=== PATIENT | male | born 1960 | race African-American/Black ===

== ENCOUNTER 2020-04-26 10:53 | Emergency (ER) | payer OTHER ==
[2020-04-26 11:48] LABS: Hematocrit 48.9 % (39.6-49.0); Lymphocytes % 27.5 % (15.3-44.8); MPV 9.4 fL (7.6-11.3); RBC Red Blood Cell Count 6.08 M/uL (4.33-5.43)
[2020-04-26] MEDS ORDERED: NA CHLORIDE 0.9% 1,000 ML ONE (11:50)
--- NOTE | 2020-04-26 12:11 | RAD REPORT ---
EXAM DESCRIPTION: RAD - Chest Single View - 04/26/2020 12:02 pm CLINICAL HISTORY: COUGH Chest pain. COMPARISON: No comparisons FINDINGS: Portable technique limits examination quality. The lungs are mildly underinflated but grossly clear. The heart is normal in size. No displaced fract ures. IMPRESSION: No acute intrathoracic process suspected.
[2020-04-26 12:13] LABS: ALT/SGPT 43 U/L (12-78); AST/SGOT 17 U/L (15-37); Albumin 4.1 g/dL (3.4-5.0); Alkaline Phosphatase 92 U/L (45-117); BUN Blood Urea Nitrogen 30 mg/dL (7-18); Bicarbonate 26 mmol/L (21-32); Bilirubin Direct 0.2 mg/dL (0-0.2); Bilirubin Total 1.2 mg/dL (0.2-1.0); Lipase 97 U/L (73-393); Magnesium 2.4 mg/dL (1.8-2.4); NT PRO-BNP 21 pg/mL (<125); Potassium 4.6 mmol/L (3.5-5.1); Protein, Total 8.8 g/dL (6.4-8.2); Sodium Level 136 mmol/L (136-145); Troponin (Emerg Dept Use Only) < 0.02 ng/mL (0.0-0.045)
[2020-04-26 12:26] LABS: Glucose Level 480 mg/dL (74-106)
[2020-04-26 12:27] LABS: Urine Blood NEGATIVE (NEG); Urine Glucose 3+ (NEG); Urine Protein NEGATIVE (NEG); Urine Specific Gravity 1.015 (1.005-1.030); Urine pH 6.5 (5.0-7.0)
[2020-04-26] MEDS ORDERED: INSULIN -REGULAR HUMAN 50 UNIT/0.5 ML ML ONE (13:08)
--- NOTE | 2020-04-26 13:16 | RAD REPORT ---
EXAM DESCRIPTION: CT - Stone Protocol - 04/26/2020 12:56 pm CLINICAL HISTORY: Flank pain. ABD PAIN COMPARISON: Chest Single View dated 04/26/2020 TECHNIQUE: Axial images were obtained without oral or IV contrast. Lack of contrast limits solid org an and vascular assessment. The [id number] spans the entirety of the system partially obscuring uppermost abdomen and lung bases. Coronal reformatted images were obtained and reviewed. All CT scans are performed using dose optimization technique as appropriate and may include automated exposure control or mA/KV adjustment according to patient size. FINDINGS: The lower lung sesay are clear. Imaged portions of the liver and spleen show no suspicious findings on non-contrast imaging. The panc reas and adrenal glands are normal. No pathologic lymphadenopathy in the abdomen or pelvis. No urinary tract stones or obstructive uropathy. 4 cm benign-appearing right renal cyst. No bowel obstruction, free air, free fluid or abscess. Normal appendix noted. Posterior fusion hardware present L5 on S1. IMPRESSION: No urinary tract stones or obstructive uropathy.
--- NOTE | 2020-04-26 13:23 | ER ---
Nurse's Notes [facility] Name: Christiano Chapin Age: 60 yrs Sex: Male : 1960 Arrival Date: 04/26/2020 Time: 10:56 Bed 14 Private MD: Diagnosis: Type 2 diabetes mellitus;Unspecified kidney failure-chronic insufficency Presentation: 04/26 11:10 Chief complaint: Patient states: Light headed x 2-3 days. Urinary urgency and ca1 frequency, lower abdominal pain and tenderness, decrease appetite, nausea x 2-3 days. Pain is constant, non-radiating and describes as like "someone is punching me". Denies burning with urination. Denies fever. Coronavirus screen: Client denies travel out of the [place] in the last 14 days. nausea. Coronavirus screen: Client presents with at least one sign or symptom that may indicate coronavirus-19. Standard/surgical mask placed on the client. Provider contacted for isolation considerations. Ebola Screen: Patient negative for fever greater than or equal to 101.5 degrees Fahrenheit, and additional compatible Ebola Virus Disease symptoms Patient denies exposure to infectious person. Patient denies travel to an Ebola-affected area in the 21 days before illness onset. No symptoms or risks identified at this time. Initial Sepsis Screen: Does the patient meet any 2 criteria? No. Patient's initial sepsis screen is negative. Does the patient have a suspected source of infection? No. Patient's initial sepsis screen is negative. Risk Assessment: Do you want to hurt yourself or someone else? Patient reports no desire to harm self or others. Onset of symptoms was April 26, 2020. 11:10 Method Of Arrival: Ambulatory ca1 11:10 Acuity: LATOYA 3 ca1 Triage Assessment: 11:27 General: Appears in no apparent distress. comfortable, Behavior is calm, cooperative, ca1 appropriate for age. Pain: Complains of pain in right lower quadrant and left lower quadrant Pain does not radiate. Pain currently is 8 out of 10 on a pain scale. Pain began 2-3 days ago. Is continuous. EENT: No deficits noted. No signs and/or symptoms were reported regarding the EENT system. Neuro: Level of Consciousness is awake, alert, obeys commands, Oriented to person, place, time, situation. Cardiovascular: Heart tones S1 S2 present Capillary refill < 3 seconds Patient's skin is warm and dry. Respiratory: Airway is patent Respiratory effort is even, unlabored, Respiratory pattern is regular, symmetrical, Breath sounds are clear bilaterally. GI: Abdomen is round non-distended, Bowel sounds present X 4 quads. Abd is soft X 4 quads Abdomen is tender to palpation X 4 quads. Reports nausea. : Reports urgency, urinary frequency. Derm: Skin is intact, is healthy with good turgor, Skin is pink, warm \\T\\ dry. Musculoskeletal: Circulation, motion, and sensation intact. Capillary refill < 3 seconds. Historical: - Allergies: 11: No Known Allergies; ca1 - Home Meds: : amlodipine 5 mg tab 1 tab once daily [Active]; hydrocodone-acetaminophen 7.5-325 mg ca1 Oral tab [Active]; cyclobenzaprine 10 mg Oral tab [Active]; docusate sodium 100 mg Oral cap [Active]; piroxicam 20 mg Oral cap [Active]; lisinopril 2.5 mg Oral tab [Active]; metformin 750 mg Oral Tb24 [Active]; - PMHx: 11: Diabetes - NIDDM; Hypertension; ca1 - PSHx: : None; ca1 - Immunization history:: Adult Immunizations up to date. - Social history:: Smoking status: Patient denies any tobacco usage or history of. Screenin:29 Abuse screen: Denies threats or abuse. Denies injuries from another. Nutritional ca1 screening: No deficits noted. Tuberculosis screening: No symptoms or risk factors identified. Fall Risk IV access (20 points). Ambulatory Aid- Crutches/Cane/Walker (15 pts). Total Osorio Fall Scale indicates Low Risk Score (25-44 pts). Fall prevention measures have been instituted. Side Rails Up X 2 Family Present and informed to notify staff if they need to leave bedside As available Patient and Family Educated on Fall Prevention Program and strategies. Assessment: 11:29 Reassessment: See triage notes. ca1 12:00 Reassessment: Pt in Radiologyt. ca1 13:05 Reassessment: Patient appears in no apparent distress at this time. No changes from ca1 previously documented assessment. Patient and/or family updated on plan of care and expected duration. Pain level reassessed. Patient is alert, oriented x 3, equal unlabored respirations, skin warm/dry/pink. 14:10 Reassessment: Patient appears in no apparent distress at this time. Patient and/or ca1 family updated on plan of care and expected duration. Pain level reassessed. Patient is alert, oriented x 3, equal unlabored respirations, skin warm/dry/pink. 14:10 Reassessment: BGL 371, Notified Dr. Bustamante. VO give Lantus SQ then discharge. ca1 Vital Signs: 11:10 BP 160 / 103; Pulse 104; Resp 18; Temp 98.7(O); Pulse Ox 99% on R/A; Weight 113.4 kg ca1 (R); Height 6 ft. 0 in. (182.88 cm) (R); 11:47 BP 157 / 96; Pulse 108; Resp 20 S; Pulse Ox 98% on R/A; ca1 13:09 BP 148 / 96; Pulse 99; Resp 15 S; Pulse Ox 95% on R/A; ca1 13:35 BP 136 / 99 RA Supine (auto/lg); Pulse 101; em1 13:38 BP 137 / 94 LA Sitting (auto/lg); Pulse 108; em1 13:40 BP 142 / 87 LA Standing (auto/lg); Pulse 117; em1 14:10 BP 144 / 95; Pulse 99; Resp 18 S; Pulse Ox 97% on R/A; ca1 11:10 Body Mass Index 33.91 (113.40 kg, 182.88 cm) ca1 ED Course: 10:56 Patient arrived in ED. ag5 11:19 Norma Clay, ALINA is Primary Nurse. ca1 11:20 Lopez Bustamante MD is Attending Physician. yeny 11:24 Triage completed. ca1 11:27 Arm band placed on right wrist. ca1 11:29 Patient has correct armband on for positive identification. Placed in gown. Bed in low ca1 position. Call light in reach. Side rails up X2. Pulse ox on. NIBP on. Warm blanket given. 11:39 Initial lab(s) drawn, by me, sent to lab. Inserted saline lock: 20 gauge in right ca1 antecubital area, using aseptic technique. Blood collected. 11:39 No provider procedures requiring assistance completed. ca1 12:01 XRAY Chest (1 view) In Process Unspecified. EDMS 12:02 Urine collected: clean catch specimen, clear, Amount Voided: 200mL. ca1 12:03 Bladder scan completed. [address] Bustamante. ca1 12:56 CT Stone Protocol In Process Unspecified. EDMS 13:24 Eun Cevallos MD is Referral Physician. yeny 14:30 IV discontinued, intact, bleeding controlled, No redness/swelling at site. Pressure ca1 dressing applied. Administered Medications: 11:40 Drug: NS 0.9% 1000 ml Route: IV; Rate: 125 ml/hr; Site: right antecubital; ca1 13:10 Follow up: Response: No adverse reaction; IV Status: Order to discontinue infusion; IV ca1 Intake: 125ml 13:09 Drug: Insulin Regular Human 10 units {Co-Signature: aa5 (Salina Holder RN).} Route: ca1 IVP; Site: right forearm; 14:18 Follow up: Response: No adverse reaction; Blood sugar is lowered ca1 13:11 Drug: NS 0.9% 1000 ml Route: IV; Rate: 1 bolus; Site: right antecubital; ca1 14:20 Follow up: Response: No adverse reaction; IV Status: Completed infusion; IV Intake: ca1 1000ml 14:20 Drug: LanTUS 40 units Route: Sub-Q; Site: right lower abdomen; ca1 14:20 Follow up: Response: No adverse reaction; Medication administered at discharge. ca1 Intake: 13:10 IV: 125ml; Total: 125ml. ca1 14:20 IV: 1000ml; Total: 1125ml. ca1 Outcome: 13:22 Discharge ordered by . yeny 14:30 Discharged to home via wheelchair, with family. ca1 14:30 Condition: stable 14:30 Discharge instructions given to patient, significant other, Instructed on discharge instructions, follow up and referral plans. medication usage, Demonstrated understanding of instructions, follow-up care, medications, Prescriptions given X 2. 14:31 Patient left the ED. ca1 Signatures: Dispatcher [employer] Lopez Richardson MD MD cha Martinez, Eric em1 Norma Clay RN RN ca1 Ramin Davis ag5 Salina Holder RN aa5 Corrections: (The following items were deleted from the chart) 12:02 12:02 Urine collected: clean catch specimen, ca1 ca1
--- NOTE | 2020-04-26 13:23 | EDPHYS ---
Physician Documentation [facility] Name: Christiano Chapin Age: 60 yrs Sex: Male : 1960 Arrival Date: 04/26/2020 Time: 10:56 Bed 14 Private MD: REGINALD Physician Lopez Bustamante HPI: 04/26 11:52 This 60 yrs old Black Male presents to ER via Ambulatory with complaints of Decreased yeny Appetite, LightHeaded. 11:52 The patient presents with abdominal pain abdominal distention. Onset: The yeny symptoms/episode began/occurred 3 day(s) ago. 11:53 The patient presents with urinary symptoms, urinary frequency, every 1 hour(s). Onset: yeny The symptoms/episode began/occurred 3 day(s) ago. Modifying factors: The symptoms are alleviated by nothing, the symptoms are aggravated by nothing. Associated signs and symptoms: The patient has no apparent associated signs or symptoms. The symptoms do not radiate. Modifying factors: The symptoms are alleviated by nothing, the symptoms are aggravated by nothing. Historical: - Allergies: 11:27 No Known Allergies; ca1 - Home Meds: 11:27 amlodipine 5 mg tab 1 tab once daily [Active]; hydrocodone-acetaminophen 7.5-325 mg ca1 Oral tab [Active]; cyclobenzaprine 10 mg Oral tab [Active]; docusate sodium 100 mg Oral cap [Active]; piroxicam 20 mg Oral cap [Active]; lisinopril 2.5 mg Oral tab [Active]; metformin 750 mg Oral Tb24 [Active]; - PMHx: 11:27 Diabetes - NIDDM; Hypertension; ca1 - PSHx: 11:27 None; ca1 - Immunization history:: Adult Immunizations up to date. - Social history:: Smoking status: Patient denies any tobacco usage or history of. ROS: 11:54 Constitutional: Negative for fever, chills, and weight loss, Eyes: Negative for injury, yeny pain, redness, and discharge, ENT: Negative for injury, pain, and discharge, Neck: Negative for injury, pain, and swelling, Cardiovascular: Negative for chest pain, palpitations, and edema, Respiratory: Negative for shortness of breath, cough, wheezing, and pleuritic chest pain, Back: Negative for injury and pain, : Negative for injury, bleeding, discharge, and swelling, MS/Extremity: Negative for injury and deformity, Skin: Negative for injury, rash, and discoloration, Neuro: Negative for headache, weakness, numbness, tingling, and seizure, Psych: Negative for depression, anxiety, suicide ideation, homicidal ideation, and hallucinations, Allergy/Immunology: Negative for hives, rash, and allergies, Endocrine: Negative for neck swelling, polydipsia, polyuria, polyphagia, and marked weight changes, Hematologic/Lymphatic: Negative for swollen nodes, abnormal bleeding, and unusual bruising. 11:54 Abdomen/GI: Positive for abdominal pain, abdominal distension, of the right lower quadrant and left lower quadrant. Exam: 11:54 Constitutional: This is a well developed, well nourished patient who is awake, alert, yeny and in no acute distress. Head/Face: Normocephalic, atraumatic. Eyes: Pupils equal round and reactive to light, extra-ocular motions intact. Lids and lashes normal. Conjunctiva and sclera are non-icteric and not injected. Cornea within normal limits. Periorbital areas with no swelling, redness, or edema. ENT: Nares patent. No nasal discharge, no septal abnormalities noted. Tympanic membranes are normal and external auditory canals are clear. Oropharynx with no redness, swelling, or masses, exudates, or evidence of obstruction, uvula midline. Mucous membranes moist. Neck: Trachea midline, no thyromegaly or masses palpated, and no cervical lymphadenopathy. Supple, full range of motion without nuchal rigidity, or vertebral point tenderness. No Meningismus. Chest/axilla: Normal chest wall appearance and motion. Nontender with no deformity. No lesions are appreciated. Cardiovascular: Regular rate and rhythm with a normal S1 and S2. No gallops, murmurs, or rubs. Normal PMI, no JVD. No pulse deficits. Respiratory: Lungs have equal breath sounds bilaterally, clear to auscultation and percussion. No rales, rhonchi or wheezes noted. No increased work of breathing, no retractions or nasal flaring. Back: No spinal tenderness. No costovertebral tenderness. Full range of motion. Male : Normal genitalia with no discharge or lesions. Skin: Warm, dry with normal turgor. Normal color with no rashes, no lesions, and no evidence of cellulitis. MS/ Extremity: Pulses equal, no cyanosis. Neurovascular intact. Full, normal range of motion. Neuro: Awake and alert, GCS 15, oriented to person, place, time, and situation. Cranial nerves II-XII grossly intact. Motor strength 5/5 in all extremities. Sensory grossly intact. Cerebellar exam normal. Normal gait. Psych: Awake, alert, with orientation to person, place and time. Behavior, mood, and affect are within normal limits. 11:54 Abdomen/GI: Inspection: distension, Bowel sounds: normal, Palpation: mild abdominal tenderness, in the suprapubic area, right lower quadrant and left lower quadrant, Liver: is firm, Hernia: not appreciated. 11:55 ECG was reviewed by the Attending Physician. [facility] Vital Signs: 11:10 BP 160 / 103; Pulse 104; Resp 18; Temp 98.7(O); Pulse Ox 99% on R/A; Weight 113.4 kg ca1 (R); Height 6 ft. 0 in. (182.88 cm) (R); 11:47 BP 157 / 96; Pulse 108; Resp 20 S; Pulse Ox 98% on R/A; ca1 13:09 BP 148 / 96; Pulse 99; Resp 15 S; Pulse Ox 95% on R/A; ca1 13:35 BP 136 / 99 RA Supine (auto/lg); Pulse 101; em1 13:38 BP 137 / 94 LA Sitting (auto/lg); Pulse 108; em1 13:40 BP 142 / 87 LA Standing (auto/lg); Pulse 117; em1 14:10 BP 144 / 95; Pulse 99; Resp 18 S; Pulse Ox 97% on R/A; ca1 11:10 Body Mass Index 33.91 (113.40 kg, 182.88 cm) ca1 MDM: 11:22 Patient medically screened. [facility] 11:55 Data reviewed: vital signs, nurses notes, lab test result(s), EKG, radiologic studies, [facility] plain films. 13:29 Differential diagnosis: UTI, gastritis, non-specific abd pain, pancreatitis, yeny Pyelonephritis. Data interpreted: classroom monitor: rate is 99 beats/min, rhythm is regular, Pulse oximetry: is not applicable for this patient encounter. Test interpretation: by ED physician or midlevel provider: ECG, plain radiologic studies. Counseling: I had a detailed discussion with the patient and/or guardian regarding: the historical points, exam findings, and any diagnostic results supporting the discharge/admit diagnosis, lab results, radiology results, the need for outpatient follow up, for definitive care, an lead janitor. ED course: tight blood glucose control, close follow up discussed. 04/26 11:22 Order name: Basic Metabolic Panel; Complete Time: 12:35 [facility] 04/26 11:22 Order name: CBC with Diff; Complete Time: 11:51 [facility] 04/26 11:22 Order name: LFT's; Complete Time: 12:35 [facility] 04/26 11:22 Order name: Magnesium; Complete Time: 12:35 [facility] 04/26 11:22 Order name: NT PRO-BNP; Complete Time: 12:35 [facility] 04/26 11:22 Order name: Troponin (emerg Dept Use Only); Complete Time: 12:35 [facility] 04/26 11:22 Order name: XRAY Chest (1 view); Complete Time: 12:35 [facility] 04/26 11:22 Order name: Lipase; Complete Time: 12:35 [facility] 04/26 11:52 Order name: Urine Culture [facility] 04/26 12:11 Order name: Urine Dipstick--Ancillary (enter results) 04/26 12:11 Order name: CT Stone Protocol; Complete Time: 13:21 [facility] 04/26 12:12 Order name: Urine Dipstick-Ancillary; Complete Time: 12:35 [facility] 04/26 13:29 Order name: Glucose, Ancillary Testing [facility] 04/26 14:25 Order name: Glucose, Ancillary Testing [facility] 04/26 11:22 Order name: EKG; Complete Time: 11:23 [facility] 04/26 11:22 Order name: Cardiac monitoring; Complete Time: 11:44 [facility] 04/26 11:22 Order name: EKG - Nurse/Tech; Complete Time: 11:44 [facility] 04/26 11:22 Order name: IV Saline Lock; Complete Time: 11:45 [facility] 04/26 11:22 Order name: Labs collected and sent; Complete Time: 11:45 [facility] 04/26 11:22 Order name: O2 Per Protocol; Complete Time: 11:45 [facility] 04/26 11:22 Order name: O2 Sat Monitoring; Complete Time: 11:45 [facility] 04/26 11:22 Order name: Urine Dipstick-Ancillary (obtain specimen); Complete Time: 12:02 [facility] 04/26 11:52 Order name: Bladder Scanner: pvr; Complete Time: 12:02 yeny 04/26 13:21 Order name: Orthostatics; Complete Time: 13:42 yeny EC:55 Rate is 102 beats/min. Rhythm is regular. QRS Dana is Normal. UT interval is normal. yeny QRS interval is normal. QT interval is normal. No Q waves. T waves are Normal. No ST changes noted. Clinical impression: Sinus tachycardia. Interpreted by me. Reviewed by me. Administered Medications: 11:40 Drug: NS 0.9% 1000 ml Route: IV; Rate: 125 ml/hr; Site: right antecubital; ca1 13:10 Follow up: Response: No adverse reaction; IV Status: Order to discontinue infusion; IV ca1 Intake: 125ml 13:09 Drug: Insulin Regular Human 10 units {Co-Signature: aa5 (Salina Holder RN).} Route: ca1 IVP; Site: right forearm; 14:18 Follow up: Response: No adverse reaction; Blood sugar is lowered ca1 13:11 Drug: NS 0.9% 1000 ml Route: IV; Rate: 1 bolus; Site: right antecubital; ca1 14:20 Follow up: Response: No adverse reaction; IV Status: Completed infusion; IV Intake: ca1 1000ml 14:20 Drug: LanTUS 40 units Route: Sub-Q; Site: right lower abdomen; ca1 14:20 Follow up: Response: No adverse reaction; Medication administered at discharge. ca1 Disposition: 04/26/20 13:22 Discharged to Home. Impression: Type 2 diabetes mellitus, Unspecified kidney failure - chronic insufficency. - Condition is Stable. - Discharge Instructions: Type 2 Diabetes Mellitus, Diagnosis, Adult, Chronic Kidney Disease, Adult, [id number], Type 2 Diabetes Mellitus, Diagnosis, Adult, [id number]. - Prescriptions for Glucotrol XL 5 mg Oral tablet extended release 24hr - take 1 tablet by ORAL route once daily with breakfast; 20 tablet. Metformin 1,000 mg Oral Tablet - take 1 tablet by ORAL route every 12 hours with morning and evening meals; 30 tablet. - Medication Reconciliation Form, Thank You Letter, Antibiotic Education, Prescription Opioid Use form. - Work release form (04/26/20 15:39). eb - Follow up: Private Physician; When: 2 - 3 days; Reason: Recheck today's complaints, Continuance of care, Re-evaluation by your physician. Follow up: Eun Cevallos MD; When: 2 - 3 days; Reason: Recheck today's complaints, Re-evaluation by your physician. - Problem is new. - Symptoms have improved. Signatures: Dispatcher [employer] [facility] Lopez Bustamante MD MD cha Acob, Cheryl RN RN ca1 Carly De Leon RN aa5 Corrections: (The following items were deleted from the chart) 13:24 13:22 04/26/2020 13:22 Discharged to Home. Impression: Type 2 diabetes mellitus; yeny Unspecified kidney failure - chronic insufficency. Condition is Stable. Forms are Medication Reconciliation Form, Thank You Letter, Antibiotic Education, Prescription Opioid Use. Follow up: Private Physician; When: 2 - 3 days; Reason: Recheck today's complaints, Continuance of care, Re-evaluation by your physician. Problem is new. Symptoms have improved. yeny 14:31 13:24 04/26/2020 13:22 Discharged to Home. Impression: Type 2 diabetes mellitus; ca1 Unspecified kidney failure - chronic insufficency. Condition is Stable. Forms are Medication Reconciliation Form, Thank You Letter, Antibiotic Education, Prescription Opioid Use. Follow up: Private Physician; When: 2 - 3 days; Reason: Recheck today's complaints, Continuance of care, Re-evaluation by your physician. Follow up: Eun Cevallos; When: 2 - 3 days; Reason: Recheck today's complaints, Re-evaluation by your physician. Problem is new. Symptoms have improved. yeny
[2020-04-26] MEDS ORDERED: INSULIN GLARGINE 100 UNITS/ML SQ ONE (14:31)
[2020-04-26 14:38] VITALS: TEMP 98.7
[2020-04-26 14:45] VITALS: BP 144/95; O2SAT 97
--- OUTSIDE RECORDS SUMMARY | 2020-04-30 00:38 | XMS REPORT | Summary of Care ---
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 Active BMI 34.0-34.9,adult(Confirmed) Active Chronic pain syndrome3 10/08/12 Active Type 2 diabetes mellitus with Active hyperglycemia(Confirmed) Hyperlipidemia(Confirmed)4 04/10/13 Active Hypertension(Confirmed) Active 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 Allergies, Adverse Reactions, Alerts No Known Medication Allergies Medications No data available for this section Results No data available for this section Immunizations Given and Recorded Vaccine Date Status Refusal Reason influenza virus vaccine, inactivated 04/23/19 Given influenza virus vaccine, inactivated 05/08/18 Given influenza virus vaccine, inactivated 04/24/17 Given pneumococcal 13-valent vaccine 12/07/18 Given Procedures Procedure Date Related Diagnosis Body Site Status Laminectomy and discectomy C ompleted Spinal fusion Completed Social History Social History Type Response Alcohol Never Employment/School Status: Unemployed. Work/Sc hool description: Disabled. Highest education level: High school . Substance Abuse Use: None. Smoking Status Never smoker; Exposure to To bacco Smoke None; Cigarette Smoking Last 365 Days No; Reg Smoking Cessation Counseling No entered on: 12/10/19 Assessment and Plan No data available for this section
--- OUTSIDE RECORDS SUMMARY | 2020-04-30 00:38 | XMS REPORT | Continuity of Care Document ---
:1960 Author Organization [facility] Care Team Providers Name Role Phone [facility] Unavailable Un available Problems Problem Status Onset Classification Date Comments Sourc e Date Reported Hyperglycemia Active 10/16/19 Problem 11/14/2017 Data MH (disorder) 15 migrated Medical from [facility] on 01/28/15. HYPERGLYCEMIA Active 10/16/19 Condition 10/15/2014 MH 15 Medical Group Long-term drug Active 10/10/19 Problem 04/25/2020 Data therapy (procedure) 14 migrated Medical from [facility] on 12/20/14. Hyperlipidemia Active 04/10/20 Problem 04/25/2020 Data MH (disorder) 13 migrated Medical from [facility] on 12/20/14. 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 Chronic pain Active 10/09/19 Problem 04/25/2020 Data syndrome (disorder) 13 migrated Medical from [facility] on 12/20/14. 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 Obesity (disorder) Active 10/09/19 Problem 04/25/2020 Data 13 migrated Medical from [facility] on 12/20/14. 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 Hypertensive Active Problem 04/25/2020 MH disorder, systemic M edical arterial (disorder) Group Rib pain (finding) Active Problem 04/25/2020 Medical Group Diabetes mellitus Active Problem 04/25/2020 M H type 2 (disorder) Me dical Group Hyperproteinemia Active Problem 11/14/2017 MH (disorder) Medical Group Impaired glucose Active Problem 11/14/2017 tolerance Medical (disorder) Group Patient encounter Active Problem 04/25/2020 M H status (finding) Med ical Group Body mass index 30+ Active Problem 04/25/2020 - obesity (finding) Medical Group Hyperglycemia due Active Problem 04/25/2020 M H to type 2 diabetes M edical mellitus (disorder) Group HYPERTENSION Active Condition 10/15/2014 Medical Group ARTHRITIS Active Condition 10/15/2014 Medical Group Medications Medication Details Route Status Patient Ordering Order Source Instructions Provider Date 24 HR Metformin = 1 tab, Active MH hydrochloride 750 PO, Dinner, 020 Me dical MG Extended # 90 tab, 3 Group Release Tablet Refill(s), Pharmacy: [facility][id number] lisinopril 5 mg 5 mg = 1 Active MH oral tablet tab, PO, 020 Medical Daily, # 90 Group tab, 3 Refill(s), Pharmacy: [facility] #[id number] rosuvastatin 20 = 1 tab, Active MH mg oral tablet PO, 020 Medical Bedtime, # Group 90 tab, Refill(s) 3, Pharmacy: [facility] #[id number] lisinopril 5 mg 5 mg = 1 Active MH oral tablet tab, PO, 019 Medical Daily, # 90 Group tab, 3 Refill(s), Pharmacy: [facility] [id number] benzonatate 100 100 mg = 1 Active MH MG Oral Capsule cap, PO, 019 Medical [Tessalon Perles] Q8H, PRN Group cough, do not crush or chew, X 10 day, # 30 cap, 0 Refill(s), Pharmacy: [facility] 02136 Azithromycin 5 See Active Day Dose Pack 250 Instruction 019 Me dical mg oral tablet s, Take 2 Group tablets by mouth the first day then 1 tablet by mouth days 2-5., X 5 day, # 6 tab, 0 Refill(s), Pharmacy: [facility] [id number] 24 HR Metformin = 1 tab, Active MH hydrochloride 750 PO, Dinner, 019 Me dical MG Extended # 90 tab, Group Release Tablet Refill(s) 3, [facility] rosuvastatin 20 20 mg = 1 Active MH mg oral tablet tab, PO, 019 Medical Bedtime, # Group 90 tab, 3 Refill(s), [facility] [address] amLODIPine 5 mg 5 mg = 1 Active MH oral tablet tab, PO, 019 Medical Daily, # 90 Group tab, 3 Refill(s), [facility] [id number] 24 HR Metformin 750 mg = 1 No Longer hydrochloride 750 tab, PO, Active 018 Medic al MG Extended Daily, with Group Release Tablet evening meal, # 90 tab, 0 Refill(s), [id number] naproxen 500 mg 500 mg, PO, No Longer MH oral tablet BID, PRN Active 018 Medical Pain, X 15 Group day, # 30 tab, 0 Refill(s), [facility] [address] predniSONE 10 mg 10 mg = 1 Inactive MH oral tablet tab, PO, 018 Medical Daily, 0 Group Refill(s) lisinopril 5 mg 5 mg = 1 Active MH oral tablet tab, PO, 018 Medical Daily, # 90 Group tab, 3 Refill(s), [facility] [address] sildenafil 100 MG 100 mg = 1 Active Oral Tablet tab, PO, 018 Medical [Viagra] Daily, PRN Group for erectile dysfunction , # 30 tab, 5 Refill(s), [facility] [address] Metformin 500 mg = 1 Active hydrochloride 500 tab, PO, 018 Medic al MG Oral Tablet BID-Meals, Group # 60 tab, 5 Refill(s), Pharmacy: [facility] [address] rosuvastatin 20 20 mg = 1 Active MH mg oral tablet tab, PO, 018 Medical Bedtime, # Group 30 tab, 5 Refill(s), Pharmacy: [facility] [address]90 CYCLOBENZAPRINE 1 tab Q Active HCL 10 MG TABS day 013 Medical Group HYDROCODONE-ACETA 1 PO BID Active MINOPHEN 10-650 013 Medical MG TABS Group AMLODIPINE 1 po qd Active BESYLATE 5 MG 013 Medical TABS Group CIALIS 5 MG TABS 1 po QD Active 013 Medical Group AMLODIPINE 1 po qd Active BESYLATE 5 MG 013 Medical TABS Group PIROXICAM 20 MG 1 tab a day Active [facility] PIROXICAM 20 MG 1 tab a day Active [facility] Allergies, Adverse Reactions, Alerts Substance Category Reaction Severity Reaction Status Date Comments S ource type Reported No Known Assertion Drug Medication allergy Medic al Allergies Group Immunizations Immunization Date Site Status Last Updated Comments Sour ce Given influenza virus Left completed Jim [facility] edical vaccine, 9 [facility] Group inactivated pneumococcal Left completed Jim [facility] jessica 13-valent 9 Delto[facility] Group vaccine influenza virus Left completed [facility] vaccine, 8 deltoid Group inactivated influenza virus Left completed Efrain [facility] edical vaccine, 7 Deltoid Group inactivated Results Order Name Results Value Reference Date Interpretation Comments Eugenia rce Range Chemistry SODIUM 145 135 - 143 2014 Medical Group Chemistry POTASSIUM 5.1 3.3 - 5.0 2014 Medical Group Chemistry BUN 17 10 - 22 2014 Medical Group Chemistry CREATININE 1.00 0.46 - 1.20 2014 Medical Group Chemistry CALCIUM 10.0 8.6 - 9.8 2014 Medical Group Chemistry CHOLESTEROL 201 120 - 200 2014 Medical Group Chemistry HDL 36 26 - 62 2014 Medical Group Chemistry LDL 144 0 - 130 2014 Medical Group Chemistry ALBUMIN 4.4 3.5 - 5.0 2014 Medical Group Chemistry ALK PHOS 57 32 - 96 2014 Medical Group Chemistry SGOT (AST) 21 10 - 42 2014 Medical Group Chemistry SGPT (ALT) 30 11 - 43 2014 Medical Group Chemistry CPK 152 18 - 164 2014 Medical Group Hematology HGB 15.1 12.3 - 17.3 2014 Medical Group Hematology HCT 45.8 36.7 - 50.5 2014 Medical Group Chemistry SODIUM 142 135 - 143 2013 Medical Group Chemistry POTASSIUM 4.4 3.3 - 5.0 2013 Medical Group Chemistry SODIUM 142 135 - 143 2013 Medical Group Chemistry POTASSIUM 4.4 3.3 - 5.0 2013 Medical Group Chemistry BUN 14 10 - 2013 Medical Group Chemistry CREATININE 0.97 0.46 - 1.20 2013 Medical Group Chemistry CALCIUM 9.4 8.6 - 9.8 2013 Medical Group Chemistry CHOLESTEROL 193 120 - 200 2013 Medical Group Chemistry HDL 37 26 - 62 2013 Medical Group Chemistry LDL 137 0 - 130 2013 Medical Group Chemistry ALBUMIN 4.3 3.5 - 5.0 2013 Medical Group Chemistry ALK PHOS 44 32 - 96 2013 Medical Group Chemistry SGOT (AST) 20 10 - 42 2013 Medical Group Chemistry SGPT (ALT) 30 11 - 43 2013 Medical Group Chemistry CPK 193 18 - 164 2013 Medical Group Pathology Reports No Data Provided for This Section Diagnostic Reports Report Value Date Source Ribs unilateral DX Study: Right rib series, 4 views 03/27/2018 [facility] Clinical Indication: - rt side rib pain Comparison: None FINDINGS: Multiple views of the right ribs show no acute displaced rib fracture. No suspicious osseous lesion is seen. The visualized lungs, pleura, and mediastinum are unremarkable. IMPRESSION: Unremarkable right rib series. SL: [id number] Ribs unilateral DX EXAMINATION: Right ribs unilateral 08/25/2016 [facility] HISTORY: pain from fall rt l ower side 5 days ago; right-sided chest wall pain status post fall FINDINGS: 4 views of the right ribs are performe d without comparison. There are no displaced right -sided rib fractures. There is no right pleural effusion or right-sided pneumothorax. IMPRESSION: 1. No displaced right-sided rib fractures. Consultation Notes No Data Provided for This Section Discharge Summaries No Data Provided for This Section History and Physicals No Data Provided for This Section Vital Signs Vital Sign Value Date Comments Source Systolic (mm Hg) 135 12/10/2019 [facility] Diastolic (mm Hg) 87 12/10/2019 Medical Group Heart Rate 93 12/10/2019 MH Medical Grou p Temperature Oral (F) 98.8 F 12/10/2019 [facility]i [facility] Height 182.88 cm 12/10/2019 MH Medical Grou p Weight 110.455 12/10/2019 MH Medical Grou p BMI Calculated 33.03 12/10/2019 Medical Gr oup Systolic (mm Hg) 132 09/03/2019 [facility] Diastolic (mm Hg) 78 09/03/2019 Medical Group Heart Rate 76 09/03/2019 Medical Grou p Temperature Oral (F) 98.9 F 09/03/2019 [facility]i [facility] Group Weight 113.182 09/03/2019 Medical Grou p Systolic (mm Hg) 126 04/23/2019 [facility] Diastolic (mm Hg) 81 04/23/2019 Medical Group Heart Rate 86 04/23/2019 Medical Grou p Temperature Oral (F) 98.5 F 04/23/2019 [facility]i [facility] Group Weight 114.091 04/23/2019 Medical Grou p Weight 115 12/07/2018 Medical Grou p Temperature Oral (F) 98.1 F 12/07/2018 [facility]i [facility] Heart Rate 83 12/07/2018 MH Medical Grou p Systolic (mm Hg) 131 12/07/2018 Medical Group Diastolic (mm Hg) 82 12/07/2018 Medical Group Weight 113.636 10/18/2018 MH Medical Grou p Heart Rate 87 10/18/2018 Medical Grou p Temperature Oral (F) 98.5 F 10/18/2018 [facility]i [facility] Group Systolic (mm Hg) 150 10/18/2018 [facility] Group Diastolic (mm Hg) 92 10/18/2018 Medical Group BMI Calculated 34.38 08/07/2018 MH Medical Gr oup Weight 115 08/07/2018 MH Medical Grou p Height 182.88 cm 08/07/2018 Medical Grou p Heart Rate 91 08/07/2018 Medical Grou p Temperature Oral (F) 98.3 F 08/07/2018 [facility]i [facility] Group Systolic (mm Hg) 146 08/07/2018 Medical Group Diastolic (mm Hg) 77 08/07/2018 Medical Group Temperature Oral (F) 98.4 F 05/08/2018 [facility]i [facility] Group BMI Calculated 33.3 05/08/2018 Medical Gr oup Height 182.88 cm 05/08/2018 Medical Grou p Weight 111.369 05/08/2018 Medical Grou p Systolic (mm Hg) 134 05/08/2018 [facility] Diastolic (mm Hg) 86 05/08/2018 Medical Group Heart Rate 86 05/08/2018 Medical Grou p Height 182.88 cm 03/27/2018 Medical Grou p Temperature Oral (F) 98.1 F 03/27/2018 Medi jessica Group Heart Rate 86 03/27/2018 Medical Grou p Systolic (mm Hg) 125 03/27/2018 Medical Group Diastolic (mm Hg) 76 03/27/2018 Medical Group Height 182.88 cm 02/06/2018 Medical Grou p Weight 112.273 02/06/2018 Medical Grou p BMI Calculated 33.57 02/06/2018 Medical Gr oup Temperature Oral (F) 98.0 F 02/06/2018 Medi jess[facility] Group Systolic (mm Hg) 137 02/06/2018 Medical Group Diastolic (mm Hg) 81 02/06/2018 Medical Group Heart Rate 67 02/06/2018 Medical Grou p Weight 113.182 11/07/2017 Medical Grou p Heart Rate 91 11/07/2017 Medical Grou p Systolic (mm Hg) 123 11/07/2017 Medical Group Diastolic (mm Hg) 73 11/07/2017 Medical Group Heart Rate 91 08/08/2017 Medical Grou p Weight 110.909 08/08/2017 Medical Grou p Systolic (mm Hg) 123 08/08/2017 Medical Group Diastolic (mm Hg) 78 08/08/2017 Medical Group Weight 258.7 10/15/2014 Medical Grou p Temperature Oral (F) 98.0 F 10/15/2014 Medi jessica Group Heart Rate 64 10/15/2014 Medical Grou p Systolic (mm Hg) 126 10/15/2014 Medical Group Diastolic (mm Hg) 82 10/15/2014 Medical Group Weight 248 04/09/2014 Medical Grou p Temperature Oral (F) 97.7 F 04/09/2014 Medi jessica Group Heart Rate 84 04/09/2014 Medical Grou p Systolic (mm Hg) 140 04/09/2014 Medical Group Diastolic (mm Hg) 92 04/09/2014 Medical Group Weight 246 10/09/2013 Medical Grou p Temperature Oral (F) 97.9 F 10/09/2013 Medi jessica Group Heart Rate 100 10/09/2013 Medical Grou p Systolic (mm Hg) 132 10/09/2013 Medical Group Diastolic (mm Hg) 86 10/09/2013 Medical Group Weight 245 04/10/2013 Medical Grou p Systolic (mm Hg) 132 04/10/2013 Medical Group Diastolic (mm Hg) 80 04/10/2013 Medical Group Heart Rate 84 04/10/2013 Medical Grou p Height 70 10/08/2012 Medical Grou p Weight 245 10/08/2012 Medical Grou p Temperature Oral (F) 98.2 F 10/08/2012 Medi jessica Group Heart Rate 84 10/08/2012 Medical Grou p Systolic (mm Hg) 144 10/08/2012 Medical Group Diastolic (mm Hg) 98 10/08/2012 Medical Group Encounters Location Location Encounter Encounter Reason Attending ADM DC Stat us Source Details Type Number For Provider Date Date Visit [facility] [place] Lab Report [id number] Huat Sheng, 04/02 04/02 [place] Medical 7330 [facility] Office [id number] Huat Sheng, 04/09 04/09 [place] Medical Visit 5240 [facility] Family Practice [facility] Lab Report [id number] Huat Sheng, 10/07 10/07 [place] 2410 MD [facility]2014 [facility] Office [id number] Huat Sheng, 10/15 10/15 [place] Medical Visit 4300 MD /2014 [facility] Outpatient [id number] ARMANDO 04/07 Active [facility] [place] Outpatient [id number] ARMANDO 04/07 Active [facility] [place] Outpatient [id number] ARMANDO 10/05 Active [facility] [place] Outpatient [id number] ARMANDO 04/12 Active [facility] [place] Outpatient [id number] ARMANDO 07/12 Active [facility] [place] Outpatient [id number] ARMANDO 08/25 Active [facility] [place] Outpatient [id number] XRAY VISIT 08/25 Act [facility] [place] [facility] [id number] XRAY VISIT 08/25 Act [facility] [place] Outpatient [id number] ARMANDO 10/11 Active [facility] [place] Outpatient [id number] ARMANDO 01/10 Active [facility] [place] Outpatient [id number] ARMANDO 04/24 Active [facility] [place] Outpatient [id number] ARMANDO 08/08 Active [facility] [place] [facility] Outpatient [id number] Armando 08/08 08/09 Internal [facility]rynski /2017 [facility] [place] Outpatient [id number] ARMANDO 11/07 Active [facility] [place] [facility] Outpatient [id number] Armando 11/07 11/08 Internal Krynski /2017 [facility] [place] Outpatient [id number] ADDY 02/06 Active [facility] [place] [facility] Outpatient [id number] Addy 02/06 02/07 Family Javier /2017 [facility] [place] MG Phone [id number] 03/14 03/16 Family Message /2017 [facility] [place] Outpatient [id number] ADDY 03/27 Active [facility] [place] Outpatient [id number] XRAY VISIT 03/27 Act [facility] [place] Outpatient [id number] XRAY VISIT 03/27 Act [facility] [place] [facility] Outpatient [id number] Addy 03/27 03/28 Family Javier /2017 [facility] [place] [facility] Ambulatory [id number] NURSE 03/27 03/27 MH Radiology Pre-Reg VISIT /2017 Medica l [place] [facility] Outpatient [id number] NURSE 03/27 03/28 MH Family VISIT /2017 [facility] [place] Outpatient [id number] LAB VISIT 05/01 [facility]i [facility] [place] [facility] Ambulatory [id number] 05/01 05/31 MH Internal Pre-Reg /2017 [facility] [place] Outpatient [id number] ADDY 05/08 Active [facility] [place] [facility] Outpatient [id number] NURSE 05/08 05/09 MH Family VISIT /2017 [facility] [place] Outpatient [id number] LAB VISIT 07/31 Acti ve [facility] [place] MG Ambulatory [id number] NURSE 07/31 08/01 MH Family Pre-Reg VISIT /2018 [facility] [place] Outpatient [id number] ADDY 08/07 Active [facility] JAVIER [place] [facility] Outpatient [id number] Addy 08/07 08/08 Family Javier /2018 [facility] [place] MG Phone [id number] 09/10 09/12 MH Family Message /2018 [facility] [place] Outpatient [id number] Addy 10/18 Active [facility] Javier [place] MG Outpatient [id number] Addy 10/18 10/19 Family Javier /2018 [facility] [place] Outpatient [id number] LAB VISIT 10/30 Acti ve [facility] [place] [facility] Between [id number] 12/03 12/04 MH Family Visit /2018 [facility] [place] Outpatient [id number] Corbin 12/07 Active [facility]i [place] [facility] Outpatient [id number] Corbin 12/07 12/08 Family Messi /2018 [facility] [place] [facility] Ambulatory [id number] Addy 12/07 12/07 MH Family Pre-Reg Javier /2018 [facility] [place] MG Phone [id number] 12/10 12/12 Family Message /2018 [facility] [place] Outpatient [id number] 04/02 Act [facility] -VISIT, [place] LAB Outpatient [id number] Addy 04/11 Active [facility] [place] [facility] Ambulatory [id number] Addy 04/11 04/11 Family Pre-Reg Javier /2018 [facility] [place] Outpatient [id number] Addy 04/23 Active [facility] [place] [facility] Outpatient [id number] Addy 04/23 04/24 Family Javier /2018 [facility] [place] Outpatient [id number] 08/27 Act [facility], [place] LAB [facility] Between [id number] 08/28 08/29 MH Family Visit /2019 [facility] [place] Outpatient [id number] Addy 09/03 Active [facility] Javier /2019 [place] [facility] Outpatient [id number] Addy 09/03 09/04 Family Javier /2019 [facility] [place] [facility] Phone [id number] 09/09 09/11 Family Message /2019 [facility] [place] Outpatient [id number] 12/02 Act [facility], [place] LAB Outpatient [id number] Addy 12/09 Active [facility] Javier /2019 [place] MG Outpatient [id number] Addy 12/09 12/10 Family Javier /2019 [facility] [place] Outpatient [id number] 04/07 Act [facility], [place] [facility] Ambulatory [id number] 04/07 04/07 MH Internal Pre-Reg /2019 [facility] [place] Outpatient [id number] Addy 04/14 Active [facility] Javier /2020 [place] [facility] Ambulatory [id number] Addy 04/14 04/14 Family Pre-Reg Javier /2019 [facility] [place] [facility] Between [id number] 04/22 04/23 Primary Visit /2019 [facility] [place] Outpatient [id number] Addy 04/28 Active [facility] Javier /2020 [place] Outpatient [id number] Addy 05/26 Active [facility] Javier /2019 [place] Procedures Procedure Code Date Perfomer Comments Source colonoscopy 39069 08/17/2010 [facility] Laminectomy and [id number] Medica l discectomy Group Spinal fusion [id number] Medical Group Assessment and Plan No Data Provided for This Section Plan of Care No Data Provided for This Section Social History Social History Date Source Social History TypeResponse 04/07/2015 Medical G r[facility] Alcohol Never Employment/School Status: Unemployed. Work/School descrip tion: Disabled. Highest education level: High school. Substance Abuse Use: None. Smoking Status Never smoker; Exposure to Tobacco Smoke None; Cigarette Smoking Last 365 Days No; Reg Smoking Cessation Counseling No entered on: 12/10/19 Family History No Data Provided for This Section Advance Directives No Data Provided for This Section Functional Status No Data Provided for This Section
--- OUTSIDE RECORDS SUMMARY | 2020-04-30 00:38 | XMS REPORT | Summary of Care ---
:1960 Author Organization [facility] Internal Medicine [facility] on Address [address] [place] [address]- Encounter HQ Nathanntr_alimaria elena(FIN) [id number] Date(s): 04/07/20 - 04/07/20 [facility] Internal Medicine [place] [address] [place] [address]- [phone] Vital Signs No data available for this [...] vaccine, inactivated 04/24/17 Given pneumococcal 13-valent vaccine 5/17/19 Given Procedures Procedure Date Related Diagnosis Body [...]
--- OUTSIDE RECORDS SUMMARY | 2020-04-30 00:38 | XMS REPORT | Summary of Care ---
:1960 Author Organization [facility] [place] Address [address] [place] [address] Encounter [facility] Nathanntr_francesca(FIN) [id number] Date(s): 04/22/20 - 04/23/20 [facility] [place] [address] [place] [address]- [phone] Vital Signs No data available for this [...]
--- OUTSIDE RECORDS SUMMARY | 2020-04-30 00:39 | XMS REPORT | Continuity of Care Document ---
:1960 Author Organization [facility] t Address [address] [place] [address] Care Team Providers Name Role Phone Eloisa Herrera Attending Clinician Bryan Swenson Attending Clinician VISIT, ASHLEY DAHL Attending Clinician Unavailable Dangelo Zheng Attending Clinician Problems Condition Condition Condition Status Onset Resolution Last Treating Co mments Source Name Details Category Date Date Treatment Clinician Date Hyperglyce Problem Active 2017-11-14 M emoria enrique 10-15 13:15:18 l (disorder) 00:00: Mukesh n Hyperglyce 00 enrique (disorder) Active 10/15/2014 Problem 11/14/2017 Data migrated from [employer] on 01/28/15. [facility] HYPERGLYCE Condition Active 2014-10-15 Memoria ENRIQUE 10-15 09:07:34 l 00:00: Tobi HYPERGLYCE 00 ENRIQUE Active 10/15/2014 Condition 5 [facility] Long-term Problem Active 2020-04-25 Me moria drug 10-09 22:00:53 l therapy 00:00: Tobi (procedure Long-term 00 ) drug therapy (procedure ) Active 10/09/2013 Problem 04/25/2020 Data migrated from [employer] on 12/20/14. [facility] Hyperlipid Problem Active 2020-04-25 M emoria emia 04-10 22:00:53 l (disorder) 00:00: Mukesh n Hyperlipid 00 emia (disorder) Active 04/10/2013 Problem 04/25/2020 Data migrated from [employer] on 12/20/14. 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 [facility] Group Chronic Problem Active 2020-04-25 David jose daniel pain - 22:00:53 l syndrome Chronic 00:00: Sabrina nn (disorder) pain 00 syndrome (disorder) Active 10/08/2012 Problem 04/25/2020 Data migrated from [facility] on 12/20/14. 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 Medical Group Obesity Problem Active 2020-04-25 David jose daniel (disorder) 10-08 22:00:53 l Obesity 00:00: Tobi (disorder) 00 Active 10/08/2012 Problem 04/25/2020 Data migrated from [facility] 12/20/14. [facility] CHRONIC Condition Active 2014-10-15 Me moria PAIN 10-08 09:07:34 l SYNDROME CHRONIC 00:00: Sabrina nn PAIN 00 SYNDROME Active 10/08/2012 Condition 5 [facility] ERECTILE Condition Active 2014-10-15 M emoria DYSFUNCTIO 10-08 09:07:34 l N, ORGANIC ERECTILE 00:00: He rmann DYSFUNCTIO 00 N, ORGANIC Active 10/08/2012 Condition 5 [facility] OBESITY, Condition Active 2014-10-15 M emoria UNSPECIFIE 10-08 09:07:34 l D OBESITY, 00:00: Mukesh n UNSPECIFIE 00 D Active 10/08/2012 Condition 5 Medical Group TUBULOVILL Condition Active 2014-10-15 Memoria OUS 10-08 09:07:34 l ADENOMA, 00:00: [place] COLON TUB[place] 00 OUS ADENOMA, COLON Active 10/08/2012 Condition 5 [facility] Group HEALTH Condition Active 2014-10-15 Mem oria SCREENING 10-08 09:07:34 l HEALTH 00:00: Tobi SCREENING 00 Active 10/08/2012 Condition 5 Medical Group Arthritis Problem Active 2020-04-25 Me moria (disorder) 22:00:53 l Tobi Arthritis (disorder) Active Problem 04/25/2020 [facility]. [facility] Group Hypertensi Problem Active 2020-04-25 M emoria ve 22:00:53 l disorder, [place] systemic Hypertensi arterial ve (disorder) disorder, systemic arterial (disorder) Active Problem 04/25/2020 Medical Group Rib pain Problem Active 2020-04-25 Mem oria (finding) 22:00:53 l Rib pain Mukesh n (finding) Active Problem 04/25/2020 Medical Group Diabetes Problem Active 2020-04-25 Mem oria mellitus 22:00:53 l type 2 Diabetes Mukesh n (disorder) mellitus type 2 (disorder) Active Problem 04/25/2020 Medical Group Hyperprote Problem Active 2017-11-14 M emoria inemia 13:15:18 l (disorder) Mukesh n Hyperprote inemia (disorder) Active Problem 11/14/2017 Medical Group Impaired Problem Active 2017-11-14 Mem oria glucose 13:15:18 l tolerance Impaired Her ko (disorder) glucose tolerance (disorder) Active Problem 11/14/2017 Medical Group Patient Problem Active 2020-04-25 David jose dainel encounter 22:00:53 l status Patient [place] (finding) encounter status (finding) Active Problem 04/25/2020 Medical Group Body mass Problem Active 2020-04-25 Me moria index 30+ 22:00:53 l - obesity Body [place] (finding) mass index 30+ - obesity (finding) Active Problem 04/25/2020 Medical Group Hyperglyce Problem Active 2020-04-25 Shun yang enrique due to 22:00:53 l type 2 [place] diabetes Hyperglyce mellitus enrique due to (disorder) type 2 diabetes mellitus (disorder) Active Problem 04/25/2020 Medical Group HYPERTENSI Condition Active 2014-10-15 Memoria ON 09:07:34 l [place] HYPERTENSI ON Active Condition 10/15/2014 Medical Group ARTHRITIS Condition Active 2014-10-15 Memoria 09:07:34 l Tobi ARTHRITIS Active Condition 10/15/2014 Medical Group Allergies, Adverse Reactions, Alerts Allergy Allergy Status Severity Reaction(s) Onset Inactive Treating Comm ents Source Name Type Date Date Clinician No Known No Known Active Memori a Medicati Medicati l on on Tobi Allergie Allergie s s Social History Social Habit Start Date Stop Date Quantity Comments Source Social History 2015-04-07 2015-04-07 [facility] jason 16:05:41 16:05:41 Medications Ordered Filled Start Stop Current Ordering Indication Dosage Frequency Signature Comments Components Source Medication Medication Date Date Medication? Clinician (SIG) Name Name 24 Yes = 1 tab, Memoria Metformin 5-19 PO, l hydrochlori 16:15: Dinner, # H jason de 750 MG 00 90 tab, 3 Extended Refill(s), Release Pharmacy: [facility][id number] lisinopril Yes 5 mg = 1 Mem oria 5 mg oral 5-19 tab, PO, l tablet 16:15: Daily, # Tobi 00 90 tab, 3 Refill(s), Pharmacy: [facility] #[id number] rosuvastati 2019- Yes = 1 tab, Me moria n 20 mg 2-17 PO, l oral tablet 16:05: Bedtime, # [place] 03 90 tab, Refill(s) 3, Pharmacy: [facility] #[id number] lisinopril 2018-0 Yes 5 mg = 1 Mem oria 5 mg oral 5-20 tab, PO, l tablet 16:16: Daily, # [place] 00 90 tab, 3 Refill(s), Pharmacy: [facility] [id number] benzonatate Yes 100 mg = 1 Memoria 100 MG Oral 3-28 cap, PO, l Capsule 13:49: Q8H, PRN Mukesh n [Tessalon 00 cough, do Perles] not crush or chew, X 10 day, # 30 cap, 0 Refill(s), Pharmacy: [facility] Azithromyci Yes See Memori a n 5 Day 3-28 Instructio l Dose Pack 13:49: ns, Take 2 He rmann 250 mg oral 00 tablets by tablet mouth the first day then 1 tablet by mouth days 2-5., X 5 day, # 6 tab, 0 Refill(s), Pharmacy: [facility] [place] [id number] 24 HR Yes = 1 tab, Memoria Metformin 2-19 PO, l hydrochlori 14:02: Dinner, # H ermann de 750 MG 31 90 tab, Extended Refill(s) Release 3, Tablet Pharmacy: [facility] [place] [id number] rosuvastati Yes 20 mg = 1 M emoria n 20 mg 1-15 tab, PO, l oral tablet 19:03: Bedtime, # [place] 46 90 tab, 3 Refill(s), Pharmacy: [facility] [place] [id number] amLODIPine Yes 5 mg = 1 Mem oria 5 mg oral 1-15 tab, PO, l tablet 19:03: Daily, # [place] 16 90 tab, 3 Refill(s), Pharmacy: [facility] [place] [id number] 24 HR 2017- No 750 mg = 1 Memori a Metformin 0-16 tab, PO, l hydrochlori 14:52: Daily, Herm stacie de 750 MG 00 with Extended evening Release meal, # 90 Tablet tab, 0 Refill(s), Pharmacy: [facility] naproxen No 500 mg, Memori a 500 mg oral 9-04 PO, BID, l tablet 16:45: PRN Pain, Mukesh n 00 X 15 day, # 30 tab, 0 Refill(s), Pharmacy: [facility] predniSONE 2017- No 10 mg = 1 Me moria 10 mg oral 9-04 tab, PO, l tablet 15:48: Daily, 0 [place] 00 Refill(s) lisinopril 2018-0 Yes 5 mg = 1 Mem oria 5 mg oral 4-27 tab, PO, l tablet 18:16: Daily, # Tobi 00 90 tab, 3 Refill(s), Pharmacy: [facility] [id number] sildenafil Yes 100 mg = 1 M emoria 100 MG Oral 4-17 tab, PO, l Tablet 15:48: Daily, PRN Sabrina nn [Viagra] 00 for erectile dysfunctio n, # 30 tab, 5 Refill(s), Pharmacy: [facility] Metformin Yes 500 mg = 1 Me moria hydrochlori 4-17 tab, PO, l de 500 MG 15:48: BID-Meals, He rmann Oral Tablet 00 # 60 tab, 5 Refill(s), Pharmacy: [facility] [id number] rosuvastati Yes 20 mg = 1 M emoria n 20 mg 4-17 tab, PO, l oral tablet 15:48: Bedtime, # Tobi 00 30 tab, 5 Refill(s), Pharmacy: [facility] [place] [id number] PIROXICAM 0 Yes 1 tab a Memor ia 20 MG CAPS 3-25 day l 09:07: Tobi 34 PIROXICAM 2013-0 Yes 1 tab a Memor ia 20 MG CAPS 9-17 day l 09:24: T[place] 41 CYCLOBENZAP 0 Yes 1 tab Q Me moria RINE HCL 10 3-18 day l MG TABS 00:00: [place] 00 HYDROCODONE 2012-0 Yes 1 PO BID Me moria -ACETAMINOP 3-18 l HEN 10-650 00:00: [place] MG TABS 00 AMLODIPINE 0 Yes 1 po qd David jose daniel BESYLATE 5 3-18 l MG TABS 00:00: [place] 00 CIALIS 5 MG 2012-0 Yes 1 po QD Mem oria TABS 3-18 l 00:00: [place] AMLODIPINE 2012-0 Yes 1 po qd David jose daniel BESYLATE 5 3-18 l MG TABS 00:00: [place] 00 Vital Signs Vital Name Observation Time Observation Value Comments Source Systolic (mm Hg) 2019-12-10 15:43:00 David rial [place] Diastolic (mm Hg) 2019-12-10 15:43:00 Mem orial T[place] Heart Rate 2019-12-10 15:43:00 [facility] [place] Temperature Oral (F) 2019-12-10 15:43:00 98.8 F [facility] [place] Height 2019-12-10 15:43:00 182.88 cm [facility] [place] Weight 2019-12-10 15:43:00 [facility] [place] BMI Calculated 2019-12-10 15:43:00 Memori al Tobi Systolic (mm Hg) 2019-09-03 17:02:00 David rial [place]obi Diastolic (mm Hg) 2019-09-03 17:02:00 Mem orial [place] Heart Rate 2019-09-03 17:02:00 [facility] [place] Temperature Oral (F) 2019-09-03 17:02:00 98.9 F [facility] [place] Weight 2019-09-03 17:02:00 [facility] [place] Systolic (mm Hg) 2019-04-23 14:59:00 David rial [place] Diastolic (mm Hg) 2019-04-23 14:59:00 Mem orial [place] Heart Rate 2019-04-23 14:59:00 [facility] [place] Temperature Oral (F) 2019-04-23 14:59:00 98.5 F [facility] [place] Weight 2019-04-23 14:59:00 [facility] [place] Weight 2018-12-07 18:00:00 [facility] [place] Temperature Oral (F) 2018-12-07 18:00:00 98.1 F [facility] [place] Heart Rate 2018-12-07 18:00:00 [facility] [place] Systolic (mm Hg) 2018-12-07 18:00:00 David rial Tobi Diastolic (mm Hg) 2018-12-07 18:00:00 Mem orial [place] Weight 2018-10-18 13:30:00 [facility] [place] Heart Rate 2018-10-18 13:30:00 [facility] [place] Temperature Oral (F) 2018-10-18 13:30:00 98.5 F [facility] [place] Systolic (mm Hg) 2018-10-18 13:30:00 David rial Tobi Diastolic (mm Hg) 2018-10-18 13:30:00 Mem orial [place] BMI Calculated 2018-08-07 15:37:00 Memori al [place] Weight 2018-08-07 15:37:00 [facility] [place] Height 2018-08-07 15:37:00 182.88 cm [facility] [place] Heart Rate 2018-08-07 15:37:00 [facility] [place] Temperature Oral (F) 2018-08-07 15:37:00 98.3 F [facility] [place] Systolic (mm Hg) 2018-08-07 15:37:00 David rial [place] Diastolic (mm Hg) 2018-08-07 15:37:00 Mem orial [place] Temperature Oral (F) 2018-05-08 14:16:00 98.4 F [facility] [place] BMI Calculated 2018-05-08 14:16:00 Memori al [place] Height 2018-05-08 14:16:00 182.88 cm [facility] [place] Weight 2018-05-08 14:16:00 [facility] [place] Systolic (mm Hg) 2018-05-08 14:16:00 David rial Tobi Diastolic (mm Hg) 2018-05-08 14:16:00 Mem orial [place] Heart Rate 2018-05-08 14:16:00 [facility] [place] Height 2018-03-27 15:42:00 182.88 cm [facility] [place] Temperature Oral (F) 2018-03-27 15:42:00 98.1 F [facility] [place] Heart Rate 2018-03-27 15:42:00 [facility] [place] Systolic (mm Hg) 2018-03-27 15:42:00 David rial [place] Diastolic (mm Hg) 2018-03-27 15:42:00 Mem orial [place] Height 2018-02-06 15:02:00 182.88 cm [facility] [place] Weight 2018-02-06 15:02:00 [facility] [place] BMI Calculated 2018-02-06 15:02:00 Memori al [place] Temperature Oral (F) 2018-02-06 15:02:00 98.0 F [facility] [place] Systolic (mm Hg) 2018-02-06 15:02:00 David rial [place] Diastolic (mm Hg) 2018-02-06 15:02:00 Mem orial [place] Heart Rate 2018-02-06 15:02:00 [facility] [place] Weight 2017-11-07 14:57:00 [facility] [place] Heart Rate 2017-11-07 14:57:00 [facility] [place] Systolic (mm Hg) 2017-11-07 14:57:00 David rial [place] Diastolic (mm Hg) 2017-11-07 14:57:00 Mem orial [place] Heart Rate 2017-08-08 16:45:00 [facility] [place] Weight 2017-08-08 16:45:00 [facility] [place] Systolic (mm Hg) 2017-08-08 16:45:00 David rial Tobi Diastolic (mm Hg) 2017-08-08 16:45:00 Mem orial [place] Weight 2014-10-15 14:07:34 [facility] [place] Temperature Oral (F) 2014-10-15 14:07:34 98.0 F [facility] [place] Heart Rate 2014-10-15 14:07:34 [facility] [place] Systolic (mm Hg) 2014-10-15 14:07:34 David rial [place] Diastolic (mm Hg) 2014-10-15 14:07:34 Mem orial [place] Weight 2014-04-09 14:24:41 [facility] [place] Temperature Oral (F) 2014-04-09 14:24:41 97.7 F [facility] [place] Heart Rate 2014-04-09 14:24:41 [facility] [place] Systolic (mm Hg) 2014-04-09 14:24:41 David rial Tobi Diastolic (mm Hg) 2014-04-09 14:24:41 Mem orial [place] Weight 2013-10-09 14:13:22 [facility] [place] Temperature Oral (F) 2013-10-09 14:13:22 97.9 F [facility] [place] Heart Rate 2013-10-09 14:13:22 [facility] [place] Systolic (mm Hg) 2013-10-09 14:13:22 David rial Tobi Diastolic (mm Hg) 2013-10-09 14:13:22 Mem orial [place] Weight 2013-04-10 14:23:31 [facility] [place] Systolic (mm Hg) 2013-04-10 14:23:31 David rial [place] Diastolic (mm Hg) 2013-04-10 14:23:31 Mem orial [place] Heart Rate 2013-04-10 14:23:31 [facility] [place] Height 2012-10-08 14:36:50 [facility] [place] Weight 2012-10-08 14:36:50 [facility] [place] Temperature Oral (F) 2012-10-08 14:36:50 98.2 F [facility] [place] Heart Rate 2012-10-08 14:36:50 [facility] [place] Systolic (mm Hg) 2012-10-08 14:36:50 David rial [place] Diastolic (mm Hg) 2012-10-08 14:36:50 Mem orial [place] Procedures Procedure Date / Time Performed Performing Clinician Edi silva 2010-08-17 17:51:27 [facility] Her ko Laminectomy and Nancy Britton discectomy Spinal fusion [facility]obi Encounters Start End Encounter Admission Attending Care Care Encounter Source Date/Time Date/Time Type Type Clinicians Facility Department ID 2020-04-22 2020-04-23 Outpatient [facility] [id number] 15:42:03 15:42:03 26 2020-04-14 2020-04-14 Outpatient Javier, [facility] [id number] 10:00:00 10:00:00 Jaleesa Roy [facility] 2020-04-07 2020-04-07 Outpatient [facility] [id number] 07:40:00 07:40:00 33 2019-12-10 2019-12-10 Outpatient Javier, [facility] [id number] 11:00:00 23:59:59 Jaleesa Lamb [facility] 2019-09-09 2019-09-10 Outpatient [facility] [id number] 09:47:10 23:59:59 08 2019-09-03 2019-09-03 Outpatient Javier, [facility] [id number] 11:00:00 23:59:59 [facility] 2019-08-28 2019-08-29 Outpatient [facility] [id number] 12:45:36 12:45:36 24 2019-04-23 2019-04-23 Outpatient Javier, [facility] [id number] 10:15:00 23:59:59 [facility] 2019-04-11 2019-04-11 Outpatient Javier, [facility] [id number] 15:15:00 15:15:00 Jaleesa Amin 2018-12-10 2018-12-11 Outpatient [facility] [id number] 10:44:11 23:59:59 07 2018-12-07 2018-12-07 Outpatient Messi, [facility] [id number] 13:00:00 23:59:59 Corbin Adams 24 2018-12-07 2018-12-07 Outpatient Javier, [facility] [id number] 16:15:00 16:15:00 Jaleesa 21 [facility] 2018-12-03 2018-12-04 Outpatient [facility] [id number] 05:45:48 05:45:48 20 2018-10-18 2018-10-18 Outpatient Javier, [facility] [id number] 09:00:00 23:59:59 Jaleesa Olga [facility] 2018-09-10 2018-09-11 Outpatient [facility] [id number] 08:29:00 23:59:59 06 2018-08-07 2018-08-07 Outpatient Javier, [facility] [id number] 10:00:00 23:59:59 Jaleesa Franc [facility] 2018-07-31 2018-07-31 Outpatient VISIT, [facility] [id number] 08:05:00 23:59:59 NURSE [facility] 20 XRAY 2018-05-01 2018-05-31 Outpatient [facility] [id number] 08:25:00 07:25:00 15 2018-05-08 2018-05-08 Outpatient VISIT, [facility] [id number] 09:15:00 23:59:59 NURSE [facility] 14 XRAY 2018-03-27 2018-03-27 Outpatient VISIT, [facility] [id number] 11:30:00 23:59:59 NURSE [facility] 18 XRAY 2018-03-27 2018-03-27 Outpatient Javier, [facility] [id number] 11:00:00 23:59:59 Jaleesa Jon [facility] 2018-03-27 2018-03-27 Outpatient VISIT, [facility] [id number] 11:30:00 11:30:00 NURSE [facility] 17 XRAY 2018-03-14 2018-03-15 Outpatient [facility] [id number] 09:23:00 23:59:59 05 2018-02-06 2018-02-06 Outpatient Javier, [facility] [id number] 10:00:00 23:59:59 [facility]07 2017-11-07 Outpatient Ninoski, [facility] [id number] 10:00:00 23:59:59 Armando Pierson 2017-11-07 2017-11-07 Outpatient Norm [facility] [id number] 10:00:00 23:59:59 Armando Wilson [facility] 2017-08-08 2017-08-08 Outpatient Norm [facility] [id number] 11:30:00 23:59:59 Armando Gifford Dangelo 2017-08-08 2017-08-08 Outpatient Norm [facility] [id number] 11:30:00 23:59:59 Armando 11 [facility] Results Test Description Test Time Test Comments Results Result Comments Source Chemistry 2014-10-07 145 [facility] Sabrina nn 16:09:00 Chemistry 2014-10-07 5.1 [facility] [place] nn 16:09:00 Chemistry 2014-10-07 17 [facility] [place] nn 16:09:00 Chemistry 2014-10-07 1.00 [facility] [place] nn 16:09:00 Chemistry 2014-10-07 10.0 [facility] [place] nn 16:09:00 Chemistry 2014-10-07 201 [facility] [place] nn 16:09:00 Chemistry 2014-10-07 36 [facility] [place] nn 16:09:00 Chemistry 2014-10-07 144 [facility] [place] nn 16:09:00 Chemistry 2014-10-07 4.4 [facility] [place] nn 16:09:00 Chemistry 2014-10-07 57 [facility] [place] nn 16:09:00 Chemistry 2014-10-07 21 [facility] [place] nn 16:09:00 Chemistry 2014-10-07 30 [facility] [place] nn 16:09:00 Chemistry 2014-10-07 152 [facility] [place] nn 16:09:00 Hematology 2014-10-07 15.1 [facility] [place] nn 16:09:00 Hematology 2014-10-07 45.8 [facility] [place] nn 16:09:00 Chemistry 2014-04-02 142 [facility] [place] nn 15:40:00 Chemistry 2014-04-02 4.4 [facility] [place] nn 15:40:00 Chemistry 2014-04-02 142 [facility] [place] nn 15:40:00 Chemistry 2014-04-02 4.4 [facility] [place] nn 15:40:00 Chemistry 2014-04-02 14 [facility] [place] nn 15:40:00 Chemistry 2014-04-02 0.97 [facility] [place] nn 15:40:00 Chemistry 2014-04-02 9.4 [facility] [place] nn 15:40:00 Chemistry 2014-04-02 193 [facility] [place] nn 15:40:00 Chemistry 2014-04-02 37 [facility] [place] nn 15:40:00 Chemistry 2014-04-02 137 [facility] [place] nn 15:40:00 Chemistry 2014-04-02 4.3 [facility] [place] nn 15:40:00 Chemistry 2014-04-02 44 [facility] [place] nn 15:40:00 Chemistry 2014-04-02 20 [facility] [place] nn 15:40:00 Chemistry 2014-04-02 30 [facility] [place] nn 15:40:00 Chemistry 2014-04-02 193 [facility] [place] nn 15:40:00
== END 2020-04-26 14:31 | disposition home or self-care (01) ==
LOC: ER 10:53
DX: E11.22 Type 2 diabetes mellitus with diabetic chronic kidney disease (principal); I12.9 Hypertensive chronic kidney disease with stage 1 through stage 4 chronic kidney disease, or unspecified chronic kidney disease; N18.9 Chronic kidney disease, unspecified
CPT/HCPCS: 96361; 93005; 87088; 85025; 87086; 80048; 36415; 83735; 82947 ×2; 80076; 81003; 84484; 83690; 83880; 76377; 74176; 71045; 96372; 96374; 99284; J7030; J1815

== ENCOUNTER 2021-07-27 08:42 | Emergency (ER) | payer OTHER ==
--- OUTSIDE RECORDS SUMMARY | 2021-07-27 08:45 | XMS REPORT | Continuity of Care Document ---
:1960 Author Organization [facility] t Address [address] [place] [address] Dr. Rojas [address] [place] [id number] Care Team Providers Name Role Phone Unavailable Unavailable Unavailable Problems This patient has no known problems. Allergies, Adverse Reactions, Alerts This patient has no known allergies or adverse reactions. Medications This patient has no known medications. Procedures This patient has no known procedures. Results This patient has no known results.
--- NOTE | 2021-07-27 09:44 | RAD REPORT ---
EXAM DESCRIPTION: Patrice Lawson And Guru (2 Views)07/27/2021 9:09 am CLINICAL HISTORY: Cough COMPARISON: 2019 FINDINGS: The left base is hazy. Right lung appears clear. Heart is borderline enlarged IMPRESSION: Left base is hazy suspicious for a mild pneumonia
[2021-07-27 10:33] LABS: SARS-COV-2 RT PCR POSITIVE (NEGATIVE)
--- NOTE | 2021-07-27 10:35 | EDPHYS ---
Physician Documentation [facility] Name: Christiano Chapin Age: 61 yrs Sex: Male : 1960 Arrival Date: 07/27/2021 Time: 08:46 Bed Waiting Private MD: ED Physician Gianni Freeman HPI: 07/27 09:13 This 61 yrs old Black Male presents to ER via Ambulatory with complaints of Chest kb Congestion. 09:13 The patient or guardian reports cough, that is intermittent, described as mild. Onset: kb The symptoms/episode began/occurred 1 week(s) ago. Severity of symptoms: At their worst the symptoms were moderate, in the emergency department the symptoms are unchanged. Modifying factors: The symptoms are alleviated by nothing, the symptoms are aggravated by nothing. Associated signs and symptoms: Pertinent positives: sore throat, Pertinent negatives: chest pain, diarrhea, ear ache, fever, nausea, rhinorrhea, vomiting. The patient has not experienced similar symptoms in the past. The patient has not recently seen a physician. Pt reports cough, congestion and sore throat for a week. Denies fever, chest pain, shortness of breath. Historical: - Allergies: 08:55 No Known Allergies; ll1 - PMHx: 08:55 Diabetes - NIDDM; Hypertension; ll1 - PSHx: 08:55 None; ll1 - Immunization history:: Client reports having NOT received the Covid vaccine. Flu vaccine is up to date. - Social history:: Smoking status: Patient denies any tobacco usage or history of. ROS: 09:13 Constitutional: Negative for fever, chills, and weight loss. kb 09:13 ENT: Positive for sinus congestion, sore throat. 09:13 Respiratory: Positive for cough, Negative for dyspnea on exertion, hemoptysis, orthopnea, pleurisy, shortness of breath, sputum production, wheezing. 09:13 All other systems are negative. Exam: 09:13 Constitutional: This is a well developed, well nourished patient who is awake, alert, kb and in no acute distress. Head/Face: Normocephalic, atraumatic. ENT: Moist Mucous membranes Cardiovascular: Regular rate and rhythm with a normal S1 and S2. No gallops, murmurs, or rubs. No pulse deficits. Respiratory: Respirations even and unlabored. No increased work of breathing. Talking in full sentences Skin: Warm, dry with normal turgor. Normal color. MS/ Extremity: Pulses equal, no cyanosis. Neurovascular intact. Full, normal range of motion. Neuro: Awake and alert, GCS 15, oriented to person, place, time, and situation. Moves all extremities. Normal gait. Psych: Awake, alert, with orientation to person, place and time. Behavior, mood, and affect are within normal limits. Vital Signs: 08:54 BP 139 / 78; Pulse 96; Resp 18; Temp 98.7; Pulse Ox 98% on R/A; Weight 110.22 kg; ll1 Height 6 ft. 0 in. (182.88 cm); Pain 0/10; 08:54 Body Mass Index 32.96 (110.22 kg, 182.88 cm) ll1 MDM: 08:52 Patient medically screened. kb 09:12 Data reviewed: vital signs, nurses notes. Data interpreted: Pulse oximetry: on room air kb is 98 %. Interpretation: normal. 10:34 Counseling: I had a detailed discussion with the patient and/or guardian regarding: the kb historical points, exam findings, and any diagnostic results supporting the discharge/admit diagnosis, lab results, radiology results, the need for outpatient follow up, a family practitioner, to return to the emergency department if symptoms worsen or persist or if there are any questions or concerns that arise at home. 07/27 08:56 Order name: COVID-19/FLU A+B (Document "Date of Onset" if Symptomatic); Complete Time: kb 10:33 07/27 09:00 Order name: Strep ll1 07/27 08:56 Order name: Chest Pa And Lat (2 Views) XRAY; Complete Time: 09:56 kb 07/27 09:00 Order name: Group A Streptococcus Rapid Sc; Complete Time: 09:29 EDMS 07/27 09:29 Order name: Throat Culture EDMS Administered Medications: 11:30 Drug: Zithromax (azithromycin) 500 mg Route: PO; ll1 11:38 Follow up: Response: No adverse reaction ll1 Disposition: 12:08 Co-signature as Attending Physician, Gianni Freeman MD. rn Disposition Summary: 07/27/21 10:34 Discharge Ordered Location: Home kb Condition: Stable kb Diagnosis - Coronavirus infection, unspecified kb - Pneumonia, unspecified organism kb Followup: kb - With: Emergency Department - When: As needed - Reason: Worsening of condition Followup: kb - With: Private Physician - When: 2 - 3 days - Reason: Recheck today's complaints, Continuance of care, Re-evaluation by your physician Discharge Instructions: - Discharge Summary Sheet kb - Community-Acquired Pneumonia, Adult, [id number] kb - Viral Respiratory Infection, [id number] kb - COVID-19 kb Forms: - Medication Reconciliation Form kb - Thank You Letter kb - Antibiotic Education kb - Prescription Opioid Use kb Prescriptions: - Zithromax 500 mg Oral Tablet - take 1 tablet by ORAL route once daily for 5 days; 5 tablet; Refills: 0, kb Product Selection Permitted Signatures: Dispatcher [employer] EDMS Evangelina Quintanilla, Gianni Hook MD MD rn Clarita Pascal RN RN ll1
--- NOTE | 2021-07-27 10:35 | ER ---
Nurse's Notes [facility] Name: Christiano Chapin Age: 61 yrs Sex: Male : 1960 Arrival Date: 07/27/2021 Time: 08:46 Bed Waiting Private MD: Diagnosis: Coronavirus infection, unspecified;Pneumonia, unspecified organism Presentation: 07/27 08:54 Chief complaint: Patient states: Cough, chest congestion for 1 week. No fever. ll1 Coronavirus screen: Vaccine status: Patient reports receiving the 1st dose of the Covid vaccine. Client denies travel out of the [place] in the last 14 days. congestion, cough unrelated to allergies, fatigue, sore throat. Ebola Screen: Patient denies travel to an Ebola-affected area in the 21 days before illness onset. Initial Sepsis Screen: Does the patient meet any 2 criteria? HR > 90 bpm. No. Patient's initial sepsis screen is negative. Does the patient have a suspected source of infection? Yes: Productive cough/pneumonia. Risk Assessment: Do you want to hurt yourself or someone else? Patient reports no desire to harm self or others. Onset of symptoms was July 20, 2021. 08:54 Method Of Arrival: Ambulatory ll1 08:54 Acuity: LATOYA 4 ll1 Triage Assessment: 08:56 General: Appears in no apparent distress. Behavior is calm, cooperative, appropriate ll1 for age. Pain: Denies pain. Respiratory: Reports cough that is Airway is patent Trachea midline Respiratory effort is even, unlabored, Respiratory pattern is regular, symmetrical, Sputum is dark jauregui Breath sounds are clear bilaterally. Historical: - Allergies: 08:55 No Known Allergies; ll1 - PMHx: 08:55 Diabetes - NIDDM; Hypertension; ll1 - PSHx: 08:55 None; ll1 - Immunization history:: Client reports having NOT received the Covid vaccine. Flu vaccine is up to date. - Social history:: Smoking status: Patient denies any tobacco usage or history of. Screenin:56 Abuse screen: Denies threats or abuse. Nutritional screening: No deficits noted. ll1 Tuberculosis screening: No symptoms or risk factors identified. Fall Risk Total Osorio Fall Scale indicates No Risk (0-24 pts). Assessment: 10:00 Reassessment: No changes from previously documented assessment. Patient and/or family ll1 updated on plan of care and expected duration. Pain level reassessed. Patient is alert, oriented x 3, equal unlabored respirations, skin warm/dry/pink. 11:00 Reassessment: No changes from previously documented assessment. Patient and/or family ll1 updated on plan of care and expected duration. Pain level reassessed. Patient is alert, oriented x 3, equal unlabored respirations, skin warm/dry/pink. 11:30 Reassessment: No changes from previously documented assessment. Patient and/or family ll1 updated on plan of care and expected duration. Pain level reassessed. Patient is alert, oriented x 3, equal unlabored respirations, skin warm/dry/pink. Vital Signs: 08:54 BP 139 / 78; Pulse 96; Resp 18; Temp 98.7; Pulse Ox 98% on R/A; Weight 110.22 kg; ll1 Height 6 ft. 0 in. (182.88 cm); Pain 0/10; 08:54 Body Mass Index 32.96 (110.22 kg, 182.88 cm) ll1 ED Course: 08:46 Patient arrived in ED. as 08:51 Evangelina Quintan[facility]C [facility]. kb 08:51 Gianni Freeman MD is Attending Physician. kb 08:55 Triage completed. ll1 08:56 Arm band placed on. ll1 08:56 Patient has correct armband on for positive identification. Bed in low position. Call ll1 light in reach. Side rails up X 1. Cardiac monitoring not applicable on this patient. 09:09 Chest Pa And Lat (2 Views) XRAY In Process Unspecified. EDMS 09:13 X-ray completed. Patient tolerated procedure well. Patient taken to [facility], via 1 wheelchair. 11:37 No provider procedures requiring assistance completed. Patient did not have IV access ll1 during this emergency room visit. Administered Medications: 11:30 Drug: Zithromax (azithromycin) 500 mg Route: PO; ll1 11:38 Follow up: Response: No adverse reaction ll1 Outcome: 10:34 Discharge ordered by . kb 11:37 Patient left the ED. ll1 11:37 Discharged to home ambulatory. ll1 11:37 Condition: stable 11:37 Discharge instructions given to patient, Instructed on discharge instructions, follow up and referral plans. medication usage, Demonstrated understanding of instructions, follow-up care, medications, Prescriptions given X 1. Signatures: Dispatcher [employer] Evangelina Rmaos, VISCERA WASHER-C VISCERA WASHER-Deanne [facility]Ad[facility] Tia Montejo Lynsay RN RN ll1 Corrections: (The following items were deleted from the chart) 09:02 08:54 Pulse 96bpm; Resp 18bpm; Pulse Ox 98% RA; Temp 98.7F; 110.22 kg; Height 6 ft. 0 ll1 in.; BMI: 32.9; Pain 0/10; ll1 09:06 08:54 Acuity: LATOYA 3 ll1 ll1
[2021-07-27] MEDS ORDERED: AZITHROMYCIN 250 MG TAB ONE (11:33)
[2021-07-27 11:52] VITALS: BP 139/78; TEMP 98.7; O2SAT 98
== END 2021-07-27 11:37 | disposition home or self-care (01) ==
LOC: ER 08:42
DX: U07.1 COVID-19 (principal); J12.82 Pneumonia due to coronavirus disease 2019; I10 Essential (primary) hypertension
CPT/HCPCS: 87070; 87081; 0240U; 71046; 99283